=== PATIENT | female | born 1985 | race Caucasian/White ===

== ENCOUNTER 2022-06-11 19:42 | Inpatient (IN) | payer BC ==
[~2022-06-11] VITALS: Ht 170.2 cm; Wt 83.9 kg
[2022-06-11] MEDS ORDERED: TERBUTALINE SULFATE 1 MG/ML VIAL SUBCUT ONE (20:15)
[2022-06-11] MEDS ORDERED: LR 1,000 ML IV SCH (20:15)
[2022-06-11] MEDS ORDERED: AMPICILLIN SODIUM 2 GM in NS 100 ML IV ONE ×2 (20:15)
[2022-06-11] MEDS ORDERED: AMPICILLIN SODIUM 2 GM VIAL ONE (20:25)
[2022-06-11 20:55] LABS: BASOPHILS % (AUTO) 0.2 % (0.0-2.0); EOSINOPHILS # (AUTO) 0.2 K/uL (0.0-0.4); EOSINOPHILS % (AUTO) 0.9 % (0.0-4.0); HEMATOCRIT 39.4 % (36-48); HEMOGLOBIN 13.2 g/dL (12.0-16.0); LYMPHOCYTES # (AUTO) 2.3 K/uL (1.0-5.5); LYMPHOCYTES % (AUTO) 12.1 % (20.5-51.5); MEAN CORPUSCULAR HEMOGLOBIN 30 pg (27-31); MEAN CORPUSCULAR HGB CONC 34 % (32-36); MEAN CORPUSCULAR VOLUME 90 fL (79.0-98.0); MONOCYTES # (AUTO) 1.4 K/uL (0.0-1.0); MONOCYTES % (AUTO) 7.3 % (1.7-9.3); NEUTROPHILS # (AUTO) 15.2 K/uL (1.8-7.7); NEUTROPHILS % (AUTO) 79.5 % (40.0-70.0); PLATELET COUNT (AUTO) 284 K/uL (130-430); RED BLOOD CELL COUNT(AUTO) 4.37 MIL/uL (4.2-6.2); WHITE BLOOD COUNT (AUTO) 19.1 K/uL (4.8-10.8)
[2022-06-11] MEDS ORDERED: OXYTOCIN/0.9 % SODIUM CHLORIDE 1,000 ML IV SCH (21:00)
[2022-06-11] MEDS ORDERED: DIPHTH,PERTUSS(ACELL),TET VAC 0.5 ML VIAL (Tdap) I.M. PRN (21:00)
[2022-06-11] MEDS ORDERED: LANOLIN 7 GM OINT. TP PRN (21:00)
[2022-06-11] MEDS ORDERED: TEMAZEPAM 15 MG CAPSULE PO PRN (21:00)
[2022-06-11] MEDS ORDERED: DERMOPLAST SPRAY TP PRN (21:00)
[2022-06-11] MEDS ORDERED: SENNOSIDES/DOCUSATE SODIUM 1 TAB TABLET(SENOKOT-S) PO SCH (21:00)
[2022-06-11] MEDS ORDERED: OXYCODONE/ACETAMINOPHEN 5-325 TABLET PO PRN (21:00)
[2022-06-11] MEDS ORDERED: WITCH HAZEL LEAF 1 MED.PAD MED.PAD TP PRN (21:00)
[2022-06-11] MEDS ORDERED: RHO(D) IMMUNE GLOBULIN/MALTOSE 1500 UNITS/1.3 ML (WINHRO) IM PRN (21:00)
[2022-06-11] MEDS ORDERED: OXYTOCIN/0.9 % SODIUM CHLORIDE 1,000 ML IV ONE (21:00)
[2022-06-11] MEDS ORDERED: ANUSOL 1 EA SUPP.RECT (PREPARATION H) RC PRN (21:00)
[2022-06-11] MEDS ORDERED: MEASLES,MUMPS&RUBELLA VACC/PF 12500 UNIT/0.5 ML VIAL SUBQ PRN (21:00)
[2022-06-11] MEDS ORDERED: HYDROCORTISONE 0.5% CREAM 28.4 GM CREAM.GM. TP PRN (21:00)
[2022-06-11 22:39] VITALS: BP_SYST 122
[2022-06-11] MEDS: IBUPROFEN 600 MG TABLET PO SCH (23:49)
[2022-06-12 00:19] LABS: BARBITURATE, URINE NEGATIVE (NEG <=200); BENZODIAZEPINE, URINE NEGATIVE (NEG <=150); CANNABINOID, URINE NEGATIVE (NEG <=50); COCAINE, URINE NEGATIVE (NEG <=150); METHAMPHETAMINES SCREEN,URINE POSITIVE (NEG <=500); OPIATE, URINE NEGATIVE (NEG <=100); PHENCYCLIDINE SCREEN,URINE NEGATIVE (NEG <=25); UR TRICYCLIC ANTIDEPRESSANTS NEGATIVE (NEG <=300); URINE AMPHETAMINE POSITIVE (NEG <=500); URINE METHADONE NEGATIVE (NEG <=200); URINE OXYCODONE SCREEN NEGATIVE (NEG <=100); URINE PROPOXYPHENE SCREEN NEGATIVE (NEG <=300)
[2022-06-12 00:23] LABS: BILIRUBIN,URINE NEGATIVE (NEGATIVE); BLOOD, URINE 2+ (NEGATIVE); CLARITY/URINE CLEAR (CLEAR); COLOR,URINE YELLOW (YELLOW); GLUCOSE,URINE 1+ (NEGATIVE); KETONES,URINE NEGATIVE (NEGATIVE); LEUKOCYTE ESTERASE ,URINE NEGATIVE (NEGATIVE); NITRITE, URINE NEGATIVE (NEGATIVE); PROTEIN URINE TRACE (NEGATIVE)
[2022-06-12 01:00] LABS: BACTERIA,URINE None Seen /HPF (None Seen); WBC,URINE 0-3 /HPF (0-3)
[2022-06-12 01:02] LABS: MUCUS,URINE None Seen /LPF (None Seen)
[2022-06-12] MEDS: IBUPROFEN 600 MG TABLET PO SCH ×2 (05:40→12:14)
[2022-06-12] MEDS ORDERED: DOCUSATE SODIUM 100 MG CAPSULE PO SCH (09:00)
[2022-06-12 12:10] LABS: HEMATOCRIT 37.7 % (36-48); HEMOGLOBIN 12.5 g/dL (12.0-16.0)
[2022-06-15 03:06] LABS: HEPATITIS B SURFACE AG Negative (Negative)
[2022-06-15 15:34] LABS: RUBELLA AB, IgG <0.90 index (Immune >0.99)
== END 2022-06-12 17:52 | disposition home or self-care (01) | DRG 560 ==
LOC: OBSVTOIN 19:42 → SPU 19:42
PROVIDERS: ADMIT Obstetrics & Gynecology; ATTEND Obstetrics & Gynecology
PROC: 10E0XZZ Delivery of Products of Conception, External Approach (ICD-10-PCS; principal; 2022-06-11)
DX: O32.1XX0 Maternal care for breech presentation, not applicable or unspecified (principal); Z37.0 Single live birth; O99.324 Drug use complicating childbirth; Z3A.32 32 weeks gestation of pregnancy; F15.90 Other stimulant use, unspecified, uncomplicated; O80 Encounter for full-term uncomplicated delivery
CPT/HCPCS: 36415; 80307; 81000; 85018; 85025; 86592; 86762; 86803; 86886; 86900; 86901; 87340; 87536; J0290

== ENCOUNTER 2024-05-26 16:11 | Emergency (ER) | payer BC ==
[~2024-05-26] VITALS: Ht 170.2 cm; Wt 77.1 kg
[~2024-05-26 16:11] MED LIST: AUG875 PO; HYDR-3919 PO
[2024-05-26 16:25] VITALS: BP_SYST 93; PULSE 88; RESP 18; TEMP 97.2; O2SAT 96
[2024-05-26] MEDS ORDERED: ONDA-8 TL (16:38)
[2024-05-26] MEDS ORDERED: TRAM50TA2 PO (16:38)
[2024-05-26] MEDS: HYDROcodone/ACETAMIN 10-325 MG TAB PO ONE (16:45)
[2024-05-26] MEDS: ONDANSETRON 4 MG ODT TAB PO ONE (16:45)
[2024-05-26 16:55] VITALS: BP_SYST 93; PULSE 88; RESP 18; TEMP 97.2; O2SAT 96
== END 2024-05-26 16:53 | disposition home or self-care (01) ==
LOC: SED 16:11
DX: R10.84 Generalized abdominal pain (principal); Z90.49 Acquired absence of other specified parts of digestive tract; Z88.6 Allergy status to analgesic agent; Z79.899 Other long term (current) drug therapy; Z79.2 Long term (current) use of antibiotics
CPT/HCPCS: 99283; Q0162